=== PATIENT | female | born 2000 | race American Indian/Alaskan Native ===

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

== ENCOUNTER 2020-11-16 16:20 | Emergency (ER) | payer SELFPAY ==
[2020-11-16 16:55] VITALS: BP 119/79
--- NOTE | 2020-11-16 17:07 | Event Note ---
ED Screening Note Date of service: 11/16/20 Time: 17:05 ED Screening Note: Patient complains of chest pain and shortness of breath since yesterday History of diabetes-states blood glucose was in the 500s and that she gave herself 20 units of lispro Blood glucose now 154 This initial assessment/diagnostic orders/clinical plan/treatment(s) is/are subject to change based on patients health status, clinical progression and re- assessment by fellow clinical providers in the ED. Further treatment and workup at subsequent clinical providers discretion. Patient/guardian urged not to elope from the ED as their condition may be serious if not clinically assessed and managed. Initial orders include: Labs EKG Chest x-ray
[2020-11-16] MEDS ORDERED: IPRATROPIUM 0.02% NEBU 2.5 ML IH ONE (17:22)
[2020-11-16] MEDS ORDERED: ALBUTEROL 2.5 MG/3 ML NEBU IH ONE (17:22)
[2020-11-16 17:41] LABS: Basophils # (Auto) 0.1 K/mm3 (0.0-0.1); Basophils % (Auto) 0.5 % (0.0-1.8); Eosinophils # (Auto) 0.1 K/mm3 (0.0-0.4); Eosinophils % (Auto) 0.9 % (0.0-4.3); Hematocrit 33.1 % (30.3-42.9); Lymphocytes # (Auto) 1.3 K/mm3 (1.2-5.4); Mean Corpuscular HGB Conc 36 % (30-34); Mean Corpuscular Volume 85 fl (79-97); Monocytes # (Auto) 1.1 K/mm3 (0.0-0.8); Monocytes % (Auto) 6.9 % (0.0-7.3); Platelet Count 378 K/mm3 (140-440); Red Blood Count 3.91 M/mm3 (3.65-5.03); Red Cell Distribution Width 17.3 % (13.2-15.2)
[2020-11-16] MEDS ORDERED: predniSONE 20 MG TAB PO ONE (17:44)
[2020-11-16] MEDS ORDERED: ACETAMINOPHEN 325 MG TAB PO STA (17:46)
--- NOTE | 2020-11-16 17:47 | Emergency Department Report ---
ED General Adult HPI - General Chief complaint: Hyperglycemia Stated complaint: Shortness of breath, cough, I feel achy PUI?: Yes Time Seen by Provider: 11/16/20 17:25 Source: patient, RN notes reviewed, old records reviewed Mode of arrival: Ambulatory Limitations: No Limitations - History of Present Illness Initial comments: The patient was evaluated in the emergency department for symptoms described in the history of present illness. He/she was evaluated in the context of the global COVID-19 pandemic, which necessitated consideration that the patient might be at risk for infection with the virus that causes COVID-19. I titutional protocols and algorithms that pertain to the evaluation of patients at risk for COVID-19 are in a state of rapid change based on information released by regulatory bodies including the CDC and federal and state organizations. These policies and algorithms were followed during the patient's care in the emergency department. Please note that these policies, procedures and recommendations changed on a rapid basis. During the entire history and physical examination, I had a complete personal protective equipment. During the physical examination, I am chaperoned by nurse Nayeli Moe Past medical history: Type 1 diabetes, hemoglobin A1c of 6, daily marijuana use, reactive airways disease/asthma, no lifetime intubations, multiple hospitalizations. Does not have COVID-19 vaccination. The patient is a 19-year-old female. She presents to the ER today with a complaint of cough, chest tightness, hyperglycemia at home (glucose of greater than 500). Patient reports that cough and chest tightness have been present for 24 to 36 hours. She smokes marijuana on a daily basis. She denies fever, loss of taste and smell. She is not COVID-19 vaccinated. She has chest wall tightne ss and pain with coughing. She denies headache and neck pain. She denies leg pain, leg swelling, oral contraceptive use, , immobilization, surgery, and recent hospitalization. She went to [place] a few weeks ago, however, reports frequent getting out of the car, and bathroom breaks. Has not really taken any [id number] analgesia at home. She does not like to take Tylenol because "it makes me feel funny." Patient reports that she typically experiences hyperglycemia when she has a viral syndrome and/or cold symptoms and or bacterial illnesses. She checked her Accu-Chek at home, found it to be elevated, with a level of over 500, and then took 20 units of lispro insulin at approximately 2:30 PM, as per her current sliding scale. This was meant to treat hyperglycemia, this was not suicidal in nature, and she denies coingestions. The patient also denies urinary symptoms. -: Gradual, days(s) Location: chest Radiation: non-radiation Quality: aching Consistency: intermittent Improves with: rest Worsens with: movement - Related Data Previous Rx's Medication Instructions Recorded Last Taken Type Albuterol Mdi (or & Nicu Only) 2 puff IH QID PRN #1 inha 09/21/17 Unknown Rx [ProAir HFA Inhaler] Insulin NPH/Regular [NovoLIN 70/30] 50 unit SUB-Q QAM #30 units 09/21/17 Unknown Rx Insulin NPH/Regular [Novolin 70/30] 40 unit SQ QPMDIAB #100 ml 09/21/17 Unknown Rx Lispro Insulin [HumaLOG] 1 dose SUB-Q TIDWM PRN #100 ml 09/21/17 Unknown Rx Pantoprazole [Protonix TAB] 40 mg PO QDAY #30 tablet 09/21/17 Unknown Rx Nitrofurantoin Monohyd/M-Cryst 100 mg PO BID 10 Days #20 capsule 09/26/17 Unknown Rx [Macrobid 100 mg Capsule] Albuterol Sulfate [Albuterol 0.63% 0.63 mg IH Q4HR PRN #2 ml 11/16/20 Unknown Rx NEBS] Albuterol Sulfate [Proair 90 mcg IH Q4HR PRN #2 aer.pow.ba 11/16/20 Unknown Rx Respiclick] Budesonide [Pulmicort Respules] 1 mg IH Q12HRT 30 Days #1 nebu 11/16/20 Unknown Rx predniSONE [Deltasone] 40 mg PO QDAY #8 tab 11/16/20 Unknown Rx Allergies Allergy/AdvReac Type Severity Reaction Status Date / Time peanut Allergy Mild Vomiting Verified 09/25/17 20:25 ED Review of Systems ROS: Stated complaint: SOB,CHEST PAIN,BS Other details as noted in HPI Constitutional: malaise, weakness, other (Denies loss of taste and smell). denies: fever Eyes: denies: eye discharge ENT: congestion Respiratory: cough, shortness of breath, SOB with exertion, SOB at rest, wheezing Cardiovascular: other (Chest tightness) Gastrointestinal: denies: abdominal pain Genitourinary: denies: dysuria Musculoskeletal: myalgia Neurological: weakness Hematological/Lymphatic: denies: easy bleeding ED Past Medical Hx - Past Medical History Previous Medical History?: Yes Hx Congestive Heart Failure: No Hx Diabetes: Yes (type 1) Hx Asthma: Yes Hx COPD: No Additional medical history: liver biospy - Surgical History Past Surgical History?: Yes Additional Surgical History: Ectopic PG - Social History Smoking Status: Never Smoker Substance Use Type: Marijuana - Medications Home Medications: Home Medications Medication Instructions Recorded Confirmed Last Taken Type Albuterol Mdi (or & Nicu Only) 2 puff IH QID PRN #1 inha 09/21/17 Unknown Rx [ProAir HFA Inhaler] Insulin NPH/Regular [NovoLIN 70/30] 50 unit SUB-Q QAM #30 units 09/21/17 Unknown Rx Insulin NPH/Regular [Novolin 70/30] 40 unit SQ QPMDIAB #100 ml 09/21/17 Unknown Rx Lispro Insulin [HumaLOG] 1 dose SUB-Q TIDWM PRN #100 ml 09/21/17 Unknown Rx Pantoprazole [Protonix TAB] 40 mg PO QDAY #30 tablet 09/21/17 Unknown Rx Nitrofurantoin Monohyd/M-Cryst 100 mg PO BID 10 Days #20 capsule 09/26/17 Unknown Rx [Macrobid 100 mg Capsule] Albuterol Sulfate [Albuterol 0.63% 0.63 mg IH Q4HR PRN #2 ml 11/16/20 Unknown Rx NEBS] Albuterol Sulfate [Proair 90 mcg IH Q4HR PRN #2 aer.pow.ba 11/16/20 Unknown Rx Respiclick] Budesonide [Pulmicort Respules] 1 mg IH Q12HRT 30 Days #1 nebu 11/16/20 Unknown Rx predniSONE [Deltasone] 40 mg PO QDAY #8 tab 11/16/20 Unknown Rx ED Physical Exam - General Limitations: No Limitations General appearance: alert, in no apparent distress - Head Head exam: Present: atraumatic, normocephalic - Eye Eye exam: Present: normal appearance, EOMI. Absent: nystagmus - ENT ENT exam: Present: normal exam, normal orophraynx, mucous membranes moist, normal external ear exam - Neck Neck exam: Present: normal inspection, full ROM. Absent: tenderness, meningismus - Respiratory Respiratory exam: Present: respiratory distress, wheezes, rhonchi, chest wall tenderness - Cardiovascular Cardiovascular Exam: Present: regular rate, normal rhythm, normal heart sounds. Absent: bradycardia, tachycardia, irregular rhythm, systolic murmur, diastolic murmur, rubs, gallop - GI/Abdominal GI/Abdominal exam: Present: soft. Absent: distended, tenderness, guarding, rebound, rigid, pulsatile mass - Extremities Exam Extremities exam: Present: normal inspection, full ROM, other (2+ pulses noted in the bilateral upper and lower extremities. There is no palpable cord. negative Homans sign. Muscular compartments are soft. The pelvis is stable.). Absent: pedal edema, calf tenderness - Back Exam Back exam: Present: normal inspection. Absent: tenderness, CVA tenderness (R), CVA tenderness (L), paraspinal tenderness, vertebral tenderness - Neurological Exam Neurological exam: Present: alert, oriented X3, other (No facial droop. Tongue midline. Extraocular movements intact bilaterally. Facial sensation intact to light touch in V1, V2, V3 distribution bilaterally. 5 and a 5 strength in 4 extremities. Sensation intact to light touch in 4 extremities.). Absent: motor sensory deficit - Psychiatric Psychiatric exam: Present: normal affect, normal mood - Skin Skin exam: Present: warm, dry, intact, normal color. Absent: rash ED Course Vital Signs 11/16/20 16:52 Temperature 99.4 F Pulse Rate 114 H Respiratory 22 Rate Blood Pressure 119/79 O2 Sat by Pulse 100 Oximetry - Reevaluation(s) Reevaluation #1: 11/16/20 17:53 Differential diagnosis, including but not limited to: Reactive airways disease exacerbation, pneumonia, COVID-19, hyperglycemia, diabetic ketoacidosis Assessment and plan: 19-year-old female, who is currently afebrile but with low- grade temperature, tachycardic, but not tachypneic or hypoxic, currently saturating at 98/99% on room air, who is a daily marijuana user, who is not COVID-19 vaccinated, with a few acute issues. Issue 1, cough, clear mucus production, wheezing. Likely bronchitis versus pneumonitis versus Covid versus pneumonia. Place patient on isolation. Start albuterol, Atrovent and steroids. Extensive discussion had with patient regarding need to cease marijuana consumption, and to consider outpatient COVID- 19 vaccination. Issue #2, reproducible chest wall pressure and pain, likely costochondritis, secondary to issue #1. Supportive care. Obtain EKG, chest x-ray, low risk for major adverse cardiac event as per heart score. Issue #3, hyperglycemia, likely secondary to issue #1. Have requested basic laboratory studies. The patient reports that she is not . Discussed with [facility] once initial diagnostics have resulted. Patient not encephalopathic or altered at this time. 11/16/20 18:38 The patient is reassessed. She feels much improved. She states her wheezing is improved. Laboratory studies reviewed and appreciated. Leukocytosis is likely a stress reaction. Contacted the [place] [facility]. Discussed the patient's history, physical, laboratory studies vital signs and overall clinical impression. They recommend 7 hours of observation from the time of first medical contact for insulin lispro administration. Therefore, Accu-Cheks every 1 hour, and discharged at 10:52 PM this evening, assuming no further issues with hypoglycemia. 11/16/20 19:28 Discussed this plan of care with the patient. She is agreeable to staying. Care will be transferred to the oncoming ER physician, Dr Damaris De Souza, to monitor patient, and discharge if no further issues noted. Extensive discussion had with patient regarding need to discontinue cannabis consumption, consider outpatient COVID-19 vaccination, and to follow-up with outpatient primary care. 11/19/20 16:19 ED Medical Decision Making - Lab Data Result diagrams: 11/16/20 17:24 11/16/20 17:24 Vital Signs 11/16/20 16:52 Temperature 99.4 F Pulse Rate 114 H Respiratory 22 Rate Blood Pressure 119/79 O2 Sat by Pulse 100 Oximetry Lab Results 11/16/20 11/16/20 11/16/20 Range/Units 16:56 17:24 17:24 WBC 15.9 H (4.5-11.0) K/mm3 RBC 3.91 (3.65-5.03) M/mm3 Hgb 12.0 (10.1-14.3) gm/dl Hct 33.1 (30.3-42.9) % MCV 85 (79-97) fl MCH 31 (28-32) pg MCHC 36 H (30-34) % RDW 17.3 H (13.2-15.2) % Plt Count 378 (140-440) K/mm3 Lymph % (Auto) 8.0 L (13.4-35.0) % Tyler % (Auto) 6.9 (0.0-7.3) % Eos % (Auto) 0.9 (0.0-4.3) % Baso % (Auto) 0.5 (0.0-1.8) % Lymph # (Auto) 1.3 (1.2-5.4) K/mm3 Tyler # (Auto) 1.1 H (0.0-0.8) K/mm3 Eos # (Auto) 0.1 (0.0-0.4) K/mm3 Baso # (Auto) 0.1 (0.0-0.1) K/mm3 Seg Neutrophils % 83.7 H (40.0-70.0) % Seg Neutrophils # 13.3 H (1.8-7.7) K/mm3 VBG pH (7.320-7.420) Sodium 137 (137-145) mmol/L Potassium 4.0 (3.6-5.0) mmol/L Chloride 105.8 (98-107) mmol/L Carbon Dioxide 20 L (22-30) mmol/L Anion Gap 15 mmol/L BUN 9 (7-17) mg/dL Creatinine 0.7 (0.6-1.2) mg/dL Estimated GFR > 60 ml/min BUN/Creatinine Ratio 13 % Glucose 148 H (65-100) mg/dL POC Glucose 154 H (70-105) mg/dL Calcium 9.7 (8.4-10.2) mg/dL Total Bilirubin 1.70 H (0.1-1.2) mg/dL AST 10 (5-40) units/L ALT 5 L (7-56) units/L Alkaline Phosphatase 88 (35-129) units/L Troponin T (0.00-0.029) ng/mL Total Protein 7.0 (6.3-8.2) g/dL Albumin 4.2 (3.9-5) g/dL Albumin/Globulin Ratio 1.5 % HCG, Qual (Negative) 11/16/20 11/16/20 11/16/20 Range/Units 17:24 17:24 17:24 WBC (4.5-11.0) K/mm3 RBC (3.65-5.03) M/mm3 Hgb (10.1-14.3) gm/dl Hct (30.3-42.9) % MCV (79-97) fl MCH (28-32) pg MCHC (30-34) % RDW (13.2-15.2) % Plt Count (140-440) K/mm3 Lymph % (Auto) (13.4-35.0) % Tyler % (Auto) (0.0-7.3) % Eos % (Auto) (0.0-4.3) % Baso % (Auto) (0.0-1.8) % Lymph # (Auto) (1.2-5.4) K/mm3 Tyler # (Auto) (0.0-0.8) K/mm3 Eos # (Auto) (0.0-0.4) K/mm3 Baso # (Auto) (0.0-0.1) K/mm3 Seg Neutrophils % (40.0-70.0) % Seg Neutrophils # (1.8-7.7) K/mm3 VBG pH 7.336 (7.320-7.420) Sodium (137-145) mmol/L Potassium (3.6-5.0) mmol/L Chloride (98-107) mmol/L Carbon Dioxide (22-30) mmol/L Anion Gap mmol/L BUN (7-17) mg/dL Creatinine (0.6-1.2) mg/dL Estimated GFR ml/min BUN/Creatinine Ratio % Glucose (65-100) mg/dL POC Glucose (70-105) mg/dL Calcium (8.4-10.2) mg/dL Total Bilirubin (0.1-1.2) mg/dL AST (5-40) units/L ALT (7-56) units/L Alkaline Phosphatase (35-129) units/L Troponin T < 0.010 (0.00-0.029) ng/mL Total Protein (6.3-8.2) g/dL Albumin (3.9-5) g/dL Albumin/Globulin Ratio % HCG, Qual Negative (Negative) - EKG Data -: EKG Interpreted by Md EKG shows normal: sinus rhythm Rate: tachycardia - EKG Data When compared to previous EKG there are: no significant change Interpretation: unchanged when compared t 11/16/20 18:43 EKG today as compared to prior EKG from 09/18/2017 EKG today is interpreted at 18: 37 Sinus rhythm, tachycardia, rate 108 bpm. Normal axis, normal P wave axis, high left ventricular voltage. Intervals within normal limits. This EKG is not a STEMI. - Radiology Data Radiology results: report reviewed, image reviewed CHEST 2 VIEWS 1823 INDICATION / CLINICAL INFORMATION: cough wheeze sob COMPARISON: 09/18/2017 FINDINGS: SUPPORT DEVICES: None. HEART / MEDIASTINUM: No significant abnormality. LUNGS / PLEURA: Minimal right basilar atelectatic changes are seen. No pleural effusions are noted. No obvious pneumonic infiltrates are seen. Artifact overlies the left apex. No pneumothorax. ADDITIONAL FINDINGS: No significant additional findings. IMPRESSION: No significant acute abnormality Signer Name: Santos Kwong MD Signed: 11/16/2020 6:07 PM Critical Care Time: Yes Critical care time in (mins) excluding proc time.: 35 Critical care attestation.: If time is entered above; I have spent that time in minutes in the direct care of this critically ill patient, excluding procedure time. ED Disposition Clinical Impression: Chest wall pain, COVID-19 vaccination declined, Reactive airway disease, Marijuana use, History of hyperglycemia, Insulin long-term use Disposition: 07 LEFT AGAINST MEDICAL ADVICE Is pt being admited?: No Does the pt Need Aspirin: No Condition: Undetermined Instructions: Nonspecific Chest Pain, Adult Additional Instructions: Patient may have COVID-19.. the symptoms of COVID will typically persist 10 to 14 days. There is no cure at this time for COVID. Please make certain to self isolate and self quarantine, follow-up with an outpatient primary care doctor within the next 3 to 5 days, wash hands with soap and water frequently, thorough ly and often, patient may take the prescribed medications as needed and directed. Advance diet and drink plenty of fluids as tolerated. Avoid interactions with the very elderly, very young, and those with chronic medical conditions. Return to the emergency room right away with new pain, worsening pain, migration of pain, projectile vomiting, change in mental status, confusion, inability to tolerate liquid feeds, new, worsened or different symptoms not present on the initial emergency room evaluation. Recommend outpatient Covid testing as soon as possible, and also recommend the patient consider excepting the COVID-19 vaccination when not symptomatic. We also recommend that the patient immediately discontinue marijuana, tobacco, and smoke product utilization. Please make certain to adhere to a diabetic appropriate diet. Continue to use your insulin and diabetic medications as prescribed by your primary care doctor and/or pattern setter. Prescriptions: Albuterol Sulfate [Albuterol 0.63% NEBS] 0.63 mg IH Q4HR PRN #2 ml PRN Reason: Wheezing predniSONE [Deltasone] 40 mg PO QDAY #8 tab Albuterol Sulfate [Proair Respiclick] 90 mcg IH Q4HR PRN #2 aer.pow.ba PRN Reason: Wheezing Budesonide [Pulmicort Respules] 1 mg IH Q12HRT 30 Days #1 nebu Referrals: WINDY LIM MD [Staff Physician] - 3-5 Days [facility] [Provider Group] - 3-5 Days Forms: AMA Form, Work/School Release Form(ED)
[2020-11-16 18:07] LABS: Alanine Aminotransferase 5 units/L (7-56); Albumin 4.2 g/dL (3.9-5); BUN/Creatinine Ratio 13; Blood Urea Nitrogen 9 mg/dL (7-17); Calcium 9.7 mg/dL (8.4-10.2); Hemolysis Index 4
[2020-11-16] MEDS ORDERED: DEXTROSE 50% IN WATER (25GM) 50 ML VIAL IV PRN (18:40)
--- NOTE | 2020-11-16 19:12 | XRay Report ---
CHEST 2 VIEWS 1823 INDICATION / CLINICAL INFORMATION: cough wheeze sob COMPARISON: 09/18/2017 FINDINGS: SUPPORT DEVICES: None. HEART / MEDIASTINUM: No significant abnormality. LUNGS / PLEURA: Minimal right basilar atelectatic changes are seen. No pleural effusions are noted. N o obvious pneumonic infiltrates are seen. Artifact overlies the left apex. No pneumothorax. ADDITIONAL FINDINGS: No significant additional findings. IMPRESSION: No significant acute abnormality Signer Name: Santos Kwong MD Signed: 11/16/2020 7:07 PM Workstation Name: [id number]
--- NOTE | 2020-11-21 13:20 | Electrocardiograph Report ---
[facility] Test Date: 2020-11-16 Test Time: 18:36:01 Pat Name: JEANNE BETANCOURT Department: Room: Gender: F [employer] Consultant: NURSE : 2000 Requested By: SHUBHAM HAMILTON Order Number: [id number] Reading MD: Oksana Edwards Measurements Intervals [place] Rate: 117 P: 79 HI: 154 QRS: 74 QRSD: 72 T: 54 QT: 310 QTc: 433 Interpretive Statements Sinus tachycardia No previous ECG available for comparison Electronically Signed On 11-21-2020 13:19:56 EDT by Oksana Edwards
== END 2020-11-16 22:53 | disposition left against medical advice (07) ==
LOC: ED 16:20
DX: J45.909 Unspecified asthma, uncomplicated (principal); R07.89 Other chest pain; E10.65 Type 1 diabetes mellitus with hyperglycemia; F12.90 Cannabis use, unspecified, uncomplicated; Z98.890 Other specified postprocedural states; Z91.010 Allergy to peanuts; Z79.899 Other long term (current) drug therapy; Z79.4 Long term (current) use of insulin
CPT/HCPCS: 36415; 71046; 80053; 82805; 82962; 84484; 84703; 85025; 93005; 94640; 99284